=== PATIENT | female | born 1970 | race Caucasian/White ===

== ENCOUNTER 2018-01-17 10:28 | Inpatient (IN) | payer SELFPAY ==
[2018-01-17] MEDS ORDERED: MORPHINE 4 MG/ML SYR ONE (12:23)
[2018-01-17] MEDS ORDERED: ONDANSETRON 4 MG/2 ML VIAL ONE ×2 (12:23→16:26)
[2018-01-17] MEDS ORDERED: NA CHLORIDE 0.9% 1,000 ML ONE ×2 (12:23→16:26)
[2018-01-17 13:06] LABS: Absolute Lymphocytes (CBC) 1.7 K/uL (0.7-4.9); Absolute Monocytes 0.9 K/uL (0.1-1.3); Absolute Neutrophil 9.2 K/uL (1.8-8.0); Basophils % 0.6 % (0-1.3); Eosinophils % 0.5 % (0-4.4); Hematocrit 50.6 % (36.0-45.0); Lymphocytes % 14.3 % (15.3-44.8); MCH 32.1 pg (27.0-35.0); MCV 96.8 fL (80-100); MPV 9.7 fL (7.6-11.3); Monocytes % 7.2 % (3.3-12.3); RBC Red Blood Cell Count 5.23 M/uL (3.86-4.86)
[2018-01-17] MEDS ORDERED: DICYCLOMINE HCL 10 MG CAP ONE (13:13)
[2018-01-17 13:25] LABS: Albumin 4.4 g/dL (3.4-5.0); Bilirubin Direct 0.1 mg/dL (0-0.2); Bilirubin Total 0.5 mg/dL (0.2-1.0); Potassium 3.7 mmol/L (3.5-5.1); Protein, Total 8.3 g/dL (6.4-8.2)
--- NOTE | 2018-01-17 13:48 | RAD REPORT ---
EXAM DESCRIPTION: CT - Abdomen Pelvis W Contrast - 01/17/2018 1:37 pm CLINICAL HISTORY: Abdominal pain with nausea. Vomiting and diarrhea COMPARISON: none. TECHNIQUE: Computed axial tomography of the abdomen pelvis was obtained. 100 cc Isovue-300 was admin istered intravenously. Oral contrast was not requested which limits evaluation of bowel. All CT scans are performed using dose optimization technique as appropriate and may include automated exposure control or mA/KV adjustment according to patient size. FINDINGS: The liver has a diminished attenuation consistent with fatty infiltration Gallbladder wall is borderline thickened. Spleen, pancreas, adrenal and kidneys appear unremarkable. There is no evidence of diverticulitis. Appendix is normal. An adnexal mass is not seen IMPRESSION: Borderline gallbladder wall thickening. Ultrasound is recommended
[2018-01-17 15:09] LABS: Urine Blood TRACE (NEG); Urine Glucose NEGATIVE (NEG); Urine Protein 2+ (NEG); Urine pH 6.5 (5.0-7.0)
--- NOTE | 2018-01-17 16:13 | RAD REPORT ---
EXAM DESCRIPTION: US - Abdomen Exam Limited - 01/17/2018 3:12 pm CLINICAL HISTORY: Abdominal pain. COMPARISON: 01/17/2018 cat scan FINDINGS: Gallbladder wall is thickened. Stones and sludge occupy the gallbladder. Common bile duct is dilated measuring 12 millimeters. . IMPRESSION: Cholelithiasis. Thickened gallbladder wall likely indicating cholecystitis Dilatation of the common bile duct probably secondary to a nonvisualized stone.
[2018-01-17] MEDS ORDERED: HYDROMORPHONE HCL 0.5 MG/0.5 ML INJ ONE (16:26)
--- NOTE | 2018-01-17 16:50 | ER ---
Nurse's Notes [facility] Name: Maggie Mancuso Age: 47 yrs Sex: Female : 1970 Arrival Date: 01/17/2018 Time: 10:32 Bed 18 Private MD: Diagnosis: Cholecystitis, unspecified;Cholelithiasis Presentation: 01/17 10:45 Presenting complaint: Patient states: upper abd pain with nausea/vomiting/diarrhea x 5 aa5 days ago. Transition of care: patient was not received from another setting of care. Onset of symptoms was January 2018. Risk Assessment: Do you want to hurt yourself or someone else? Patient reports no desire to harm self or others. Initial Sepsis Screen: Does the patient meet any 2 criteria? No. Patient's initial sepsis screen is negative. Does the patient have a suspected source of infection? No. Patient's initial sepsis screen is negative. Care prior to arrival: None. 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 - Social history:: Smoking status: Patient uses tobacco products, smokes one pack cigarettes per day. - Ebola Screening: : No symptoms or risks identified at this time. Screenin:47 Abuse screen: Denies threats or abuse. Nutritional screening: Has had N/V for 3 or more em days. Tuberculosis screening: No symptoms or risk factors identified. Fall Risk None identified. Assessment: 12:00 General: Appears in no apparent distress. uncomfortable, Behavior is calm, cooperative, em Denies fever. Pain: Complains of pain in epigastric area Pain currently is 8 out of 10 on a pain scale. Neuro: Level of Consciousness is awake, alert, obeys commands, Oriented to person, place, time, situation, Gait is steady, Speech is normal. Cardiovascular: Capillary refill < 3 seconds Patient's skin is warm and dry. Respiratory: Airway is patent Respiratory effort is even, unlabored, Respiratory pattern is regular, symmetrical. GI: Abdomen is round non-distended, Bowel sounds present X 4 quads. Abd is soft X 4 quads Abdomen is tender to palpation in right upper quadrant and left upper quadrant Reports diarrhea, nausea, vomiting. : Urine is clear. EENT: No signs and/or symptoms were reported regarding the EENT system. Derm: Skin is intact, Skin is pink, warm \T\ dry. Musculoskeletal: Range of motion: intact in all extremities. 12:15 Reassessment: I agree with previous assessment. hb 13:01 Reassessment: pt reports pain medication did not help, rates pain 9/10, provider em notified, new medication orders received. 14:00 Reassessment: Patient appears in no apparent distress at this time. Patient and/or em family updated on plan of care and expected duration. Pain level reassessed. Patient is alert, oriented x 3, equal unlabored respirations, skin warm/dry/pink. Patient states feeling better. Patient states symptoms have improved. 16:06 Reassessment: Patient appears in no apparent distress at this time. Patient and/or em family updated on plan of care and expected duration. Pain level reassessed. Patient is alert, oriented x 3, equal unlabored respirations, skin warm/dry/pink. provider at bedside. 17:35 Reassessment: Patient appears in no apparent distress at this time. Patient and/or em family updated on plan of care and expected duration. Pain level reassessed. Patient is alert, oriented x 3, equal unlabored respirations, skin warm/dry/pink. rates pain 4/10 Patient states feeling better. Patient states symptoms have improved. 17:37 Reassessment: admitting provider at bedside. em 18:04 Reassessment: Patient appears in no apparent distress at this time. Patient and/or em family updated on plan of care and expected duration. Pain level reassessed. Patient is alert, oriented x 3, equal unlabored respirations, skin warm/dry/pink. 19:26 Reassessment: Patient appears in no apparent distress at this time. No changes from jd3 previously documented assessment. Patient and/or family updated on plan of care and expected duration. Pain level reassessed. Patient is alert, oriented x 3, equal unlabored respirations, skin warm/dry/pink. Vital Signs: 10:47 BP 165 / 109; Pulse 91; Resp 16 S; Temp 98.5(TE); Pulse Ox 97% on R/A; Weight 72.57 kg aa5 (R); Height 5 ft. 1 in. (154.94 cm) (R); Pain 8/10; 12:51 BP 166 / 99; Pulse 89; Resp 18; Pulse Ox 94% on R/A; Pain 8/10; em 14:00 BP 172 / 94; Pulse 82; Resp 18; Pulse Ox 96% on R/A; Pain 4/10; em 15:00 BP 175 / 90; Pulse 86; Resp 18; Pulse Ox 97% on R/A; em 16:00 BP 164 / 98; Pulse 83; Resp 18; Pulse Ox 95% on R/A; Pain 6/10; em 17:00 BP 145 / 80; Pulse 76; Resp 15; Pulse Ox 93% on R/A; em 18:00 BP 174 / 90; Pulse 76; Resp 18; Pulse Ox 94% on R/A; Pain 4/10; em 19:26 BP 166 / 75; Pulse 73; Resp 18 S; Pulse Ox 95% on R/A; jd3 10:47 Body Mass Index 30.23 (72.57 kg, 154.94 cm) aa5 ED Course: 10:32 Patient arrived in ED. as 10:46 Triage completed. aa5 10:46 Arm band placed on. aa5 11:36 Shiraz Davis PA is PHCP. [facility] 11:36 Nick Steele MD is Attending Physician. [facility] 11:36 Yousif Palm LVN is Primary Nurse. em 12:47 Patient has correct armband on for positive identification. Placed in gown. Bed in low em position. Call light in reach. Side rails up X2. Adult w/ patient. 12:47 No provider procedures requiring assistance completed. Initial lab(s) drawn, by me, em sent to lab. Inserted saline lock: 20 gauge in right antecubital area, using aseptic technique. Blood collected. 13:36 CT completed. Patient tolerated procedure well. Patient moved back from CT. jg6 13:37 CT Abd/Pelvis - W/Contrast In Process Unspecified. EDMS 15:06 Ultrasound completed. Patient tolerated well. Notified FORMULATOR/PA MICKAIL. sg3 15:12 US Abdomen Limited In Process Unspecified. EDMS 16:29 initiated a transfer with Louisa from the [facility] transfer center. eb 16:49 Mirela Batista MD is Hospitalizing Provider. jmm 19:36 Patient admitted, IV remains in place. jd3 Administered Medications: 12:37 Drug: NS 0.9% 1000 ml Route: IV; Rate: 1 bolus; Site: right antecubital; la1 14:00 Follow up: IV Status: Completed infusion; IV Intake: 1000ml em 12:37 Drug: Zofran 4 mg Route: IVP; Site: right antecubital; la1 16:05 Follow up: Response: No adverse reaction em 12:37 Drug: morphine 4 mg Route: IVP; Site: right antecubital; la1 16:05 Follow up: Response: No adverse reaction; Pain is unchanged, physician notified em 13:11 CANCELLED (PO form): Bentyl 20 mg IM once jmm 13:12 Drug: Bentyl 20 mg Route: PO; em 14:30 Follow up: Response: No adverse reaction; Pain is decreased em 16:28 Drug: Zofran 4 mg Route: IVP; Site: right antecubital; em 17:17 Follow up: Response: No adverse reaction em 16:28 Drug: NS 0.9% 1000 ml Route: IV; Rate: 1 bolus; Site: right antecubital; em 17:42 Follow up: IV Status: Completed infusion; IV Intake: 1000ml em 16:30 Drug: Dilaudid 0.5 mg Route: IVP; Site: right antecubital; hb 17:17 Follow up: Response: No adverse reaction; Pain is decreased em 17:18 Drug: Cipro 400 mg Volume: 200 ml; Route: IVPB; Infused Over: 60 mins; Site: right em antecubital; 19:05 Follow up: Response: No adverse reaction; IV Status: Completed infusion; IV Intake: em 200ml 17:18 Drug: Flagyl 500 mg Volume: 100 ml; Route: IVPB; Rate: 200 ml/hr; Infused Over: 30 em mins; Site: right antecubital; 19:05 Follow up: Response: No adverse reaction; IV Status: Completed infusion; IV Intake: em 100ml Intake: 14:00 IV: 1000ml; Total: 1000ml. em 17:42 IV: 1000ml; Total: 2000ml. em 19:05 IV: 200ml; Total: 2200ml. em 19:05 IV: 100ml; Total: 2300ml. em Outcome: 16:50 Decision to Hospitalize by Provider. batool 19:35 Admitted to Med/surg accompanied by tech, via wheelchair, room 232, with chart, Report brandy called to Nadia BLAIR 19:35 Condition: stable 19:35 Instructed on the need for admit, Demonstrated understanding of instructions. 19:44 Patient left the ED. brandy Signatures: Dispatcher [employer] EDMS Shiraz Davis PA PA jmm Munoz, Edgar, PARK RECREATION MANAGER PARK RECREATION MANAGER Ekaterina Gurrola Audri, RN RN aa5 Hossein Garcia RN RN la1 Jduy Good RN RN Tone Duron RN RN [email or web address] Dariana Allen3 Sally Schwartz Jessica j6
--- NOTE | 2018-01-17 16:51 | EDPHYS ---
Physician Documentation [facility] Name: Maggie Mancuso Age: 47 yrs Sex: Female : 1970 Arrival Date: 01/17/2018 Time: 10:32 Bed 18 Private MD: ED Physician Nick Steele HPI: 01/17 12:13 This 47 yrs old Female presents to ER via Ambulatory with complaints of m Abdominal Pain - x5 days, Vomiting. 12:13 The patient presents with abdominal pain. Onset: The symptoms/episode began/occurred jmm gradually, 5 day(s) ago. The symptoms radiate to Associated signs and symptoms: Pertinent positives: diarrhea, nausea, vomiting. The symptoms are described as achy. This is a 47 year old female with a history of HTN, HLP, Bipolar that presents to the ED with epigastric abdominal pain, vomiting, diarrhea for the past days. Denies recent abx use, denies infectious exposure, denies recent travel. . 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 - Social history:: Smoking status: Patient uses tobacco products, smokes one pack cigarettes per day. - Ebola Screening: : No symptoms or risks identified at this time. ROS: 12:13 Constitutional: Negative for fever, chills, and weight loss, Cardiovascular: Negative jmm for chest pain, palpitations, and edema, Respiratory: Negative for shortness of breath, cough, wheezing, and pleuritic chest pain. 12:13 Abdomen/GI: Positive for abdominal pain, nausea and vomiting, diarrhea. 12:13 Back: Positive for radiated pain. 12:13 All other systems are negative. Exam: 12:13 Head/Face: atraumatic. Chest/axilla: Normal chest wall appearance and motion. jmm Cardiovascular: Regular rate and rhythm. No edema appreciated Respiratory: Normal respirations, no respiratory distress appreciated 12:13 Constitutional: The patient appears in no acute distress, alert, awake. 12:13 Abdomen/GI: Inspection: abdomen appears normal, Bowel sounds: normal, Palpation: soft, mild abdominal tenderness, in the epigastric area. 12:13 Back: ROM is normal. 12:13 Musculoskeletal/extremity: ROM: intact in all extremities. 12:13 Skin: Appearance: Color: normal in color. 12:13 Neuro: Orientation: is normal, Mentation: is normal, Memory: is normal. 12:13 Psych: Behavior/mood is pleasant, cooperative. Vital Signs: 10:47 BP 165 / 109; Pulse 91; Resp 16 S; Temp 98.5(TE); Pulse Ox 97% on R/A; Weight 72.57 kg aa5 (R); Height 5 ft. 1 in. (154.94 cm) (R); Pain 8/10; 12:51 BP 166 / 99; Pulse 89; Resp 18; Pulse Ox 94% on R/A; Pain 8/10; em 14:00 BP 172 / 94; Pulse 82; Resp 18; Pulse Ox 96% on R/A; Pain 4/10; em 15:00 BP 175 / 90; Pulse 86; Resp 18; Pulse Ox 97% on R/A; em 16:00 BP 164 / 98; Pulse 83; Resp 18; Pulse Ox 95% on R/A; Pain 6/10; em 17:00 BP 145 / 80; Pulse 76; Resp 15; Pulse Ox 93% on R/A; em 18:00 BP 174 / 90; Pulse 76; Resp 18; Pulse Ox 94% on R/A; Pain 4/10; em 19:26 BP 166 / 75; Pulse 73; Resp 18 S; Pulse Ox 95% on R/A; jd3 10:47 Body Mass Index 30.23 (72.57 kg, 154.94 cm) aa5 MDM: 12:10 Patient medically screened. batool 16:45 Data reviewed: vital signs, nurses notes. Counseling: I had a detailed discussion with batool the patient and/or guardian regarding: the historical points, exam findings, and any diagnostic results supporting the discharge/admit diagnosis, the presence of at least one elevated blood pressure reading (>120/80) during this emergency department visit, radiology results, the need for further work-up and treatment in the hospital. ED course: I discussed the patient with Dr. Gonzalez whom recommended MRCP tomorrow with GI consult on Friday. I discussed this with the patient whom agreed with the plan of care. Patient is currently comfortable and non toxic in appearance. Lipase is WNL. I discussed the patient with Dr. Batista with Dr. Gonzalez plan of care whom accepted admission. . 01/17 12:10 Order name: Basic Metabolic Panel; Complete Time: 13:50 jmm 01/17 12:10 Order name: CBC with Diff; Complete Time: 13:50 m 01/17 12:10 Order name: Creatinine for Radiology; Complete Time: 13:50 jmm 01/17 12:10 Order name: Hepatic Function; Complete Time: 13:50 jmm 01/17 12:10 Order name: Lipase; Complete Time: 13:50 jmm 01/17 12:46 Order name: Urine Dipstick--Ancillary (enter results); Complete Time: 15:14 eb 01/17 12:46 Order name: Urine --Ancillary (enter results); Complete Time: 15:14 eb 01/17 13:11 Order name: CT Abd/Pelvis - W/Contrast; Complete Time: 13:50 jmm 01/17 13:50 Order name: US Abdomen Limited; Complete Time: 16:14 jmm 01/17 12:10 Order name: IV Saline Lock; Complete Time: 12:53 jmm 01/17 12:10 Order name: Labs collected and sent; Complete Time: 12:53 jmm 01/17 12:10 Order name: Urine Dipstick-Ancillary (obtain specimen); Complete Time: 12:53 [facility] 01/17 12:10 Order name: Urine Test (obtain specimen); Complete Time: 12:52 jmm Administered Medications: 12:37 Drug: NS 0.9% 1000 ml Route: IV; Rate: 1 bolus; Site: right antecubital; la1 14:00 Follow up: IV Status: Completed infusion; IV Intake: 1000ml em 12:37 Drug: Zofran 4 mg Route: IVP; Site: right antecubital; la1 16:05 Follow up: Response: No adverse reaction em 12:37 Drug: morphine 4 mg Route: IVP; Site: right antecubital; la1 16:05 Follow up: Response: No adverse reaction; Pain is unchanged, physician notified em 13:11 CANCELLED (PO form): Bentyl 20 mg IM once [facility] 13:12 Drug: Bentyl 20 mg Route: PO; em 14:30 Follow up: Response: No adverse reaction; Pain is decreased em 16:28 Drug: Zofran 4 mg Route: IVP; Site: right antecubital; em 17:17 Follow up: Response: No adverse reaction em 16:28 Drug: NS 0.9% 1000 ml Route: IV; Rate: 1 bolus; Site: right antecubital; em 17:42 Follow up: IV Status: Completed infusion; IV Intake: 1000ml em 16:30 Drug: Dilaudid 0.5 mg Route: IVP; Site: right antecubital; hb 17:17 Follow up: Response: No adverse reaction; Pain is decreased em 17:18 Drug: Cipro 400 mg Volume: 200 ml; Route: IVPB; Infused Over: 60 mins; Site: right em antecubital; 19:05 Follow up: Response: No adverse reaction; IV Status: Completed infusion; IV Intake: em 200ml 17:18 Drug: Flagyl 500 mg Volume: 100 ml; Route: IVPB; Rate: 200 ml/hr; Infused Over: 30 em mins; Site: right antecubital; 19:05 Follow up: Response: No adverse reaction; IV Status: Completed infusion; IV Intake: em 100ml Disposition: 01/17/18 16:50 Hospitalization ordered by Mirela Batista for Inpatient Admission. Preliminary diagnosis are Cholecystitis, unspecified, Cholelithiasis. - Bed requested for Telemetry/MedSurg (Inpatient). - Status is Inpatient Admission. jd3 - Condition is Stable. - Problem is new. - Symptoms have improved. UTI on Admission? No Addendum: 01/20/2018 20:40 Co-signature as Attending Physician, Nick Steele MD. r n Signatures: Dispatcher [employer] EDShiraz Sarabia PA PA Yousif Milian, TILE CONDUIT LAYER TILE CONDUIT LAYER em Nick Steele MD MD rn Calderon, Audri, RN RN aa5 Hossein Garcia RN RN la1 Judy Good RN RN Tone Duron RN RN jd3 Sally Schwartz Corrections: (The following items were deleted from the chart) 01/17 13:11 13:04 Bentyl 20 mg IM once ordered. [facility] 18:18 16:50 Hospitalization Ordered by Mirela Batista MD for Inpatient Admission. eb Preliminary diagnosis is Cholecystitis, unspecified; Cholelithiasis. Bed requested for Telemetry/MedSurg (Inpatient). Status is Inpatient Admission. Condition is Stable. Problem is new. Symptoms have improved. UTI on Admission? No. [facility] 19:44 18:18 01/17/2018 16:50 Hospitalization Ordered by Mirela Batista MD for Inpatient jd3 Admission. Preliminary diagnosis is Cholecystitis, unspecified; Cholelithiasis. Bed requested for Telemetry/MedSurg (Inpatient). Status is Inpatient Admission. Condition is Stable. Problem is new. Symptoms have improved. UTI on Admission? No. eb
[2018-01-17] MEDS ORDERED: Ciprofloxacin 200mg IV 200 MG/100 ML IV.SOLN. IV ONE (17:17)
[2018-01-17] MEDS ORDERED: METRONIDAZOLE 500mg IVPB 500 MG/100 ML BAG IV ONE (17:17)
[2018-01-17] MEDS: D5 0.45 NS 1,000 ML IV SCH (20:10)
[2018-01-17] MEDS: MORPHINE 4 MG/ML SYR IV PRN (22:05)
[2018-01-17] MEDS: ONDANSETRON 4 MG/2 ML VIAL IV PRN (22:11)
[2018-01-17 22:31] LABS: Urine Appearance CLEAR; Urine Bilirubin NEGATIVE (NEG); Urine Blood NEGATIVE (NEG); Urine Color YELLOW; Urine Glucose NEGATIVE (NEG); Urine Protein NEGATIVE (NEG); Urine Specific Gravity >=1.030 (1.005-1.030)
[2018-01-17 22:39] LABS: Urine Microscopic Reflex NO UMIC
--- NOTE | 2018-01-18 00:06 | CON ---
Reason For Consultation: Acute cholecystitis, symptomatic cholelithiasis, possible choledocholithias is, dilated common bile duct, increased liver function tests. History Of Present Illness: This is the case of a female who comes to us with abdominal pain, epigas tric right upper quadrant started about 3 days ago associated with nausea, vomiting, and diarrhea. T he patient was trying to control her diet but did not improve, so she decided to come now to the ER. She denies any dysuria, hematuria, hematochezia, or melena. Denies any recent traveling out of the country. Denies any family member sick at home. Allergies: NONE. Medical History: Includes bipolar, hypertension, hyperlipidemia. Medications: She does not remember the name, although she takes blood pressure medication. Social History: She smokes a pack a day. She does not drink alcohol. Review of Systems: Ten points otherwise unremarkable. Physical Examination: General: The patient is awake and alert. HEENT: Pupils are equal and reactive, anicteric. Neck: Supple. Chest: Clear. Heart: S1, S2. Abdomen: Epigastric right upper quadrant tenderness with Cabrera sign positive. The rest of abdomen is soft and depressible. Breasts: Deferred. Rectal: Deferred. Pelvic: Deferred. Extremities: Good capillary refill. Laboratory Data: Blood work shows WBC count of 11.9 with potassium 3.7 and AST elevated at 54. UA s hows nitrite negative. CAT scan of abdomen and pelvis interpreted by Dr. Andrea as borderline gallb ladder thickening. Ultrasound recommended. Ultrasound of the abdomen interpreted by Dr. Andrea as cholelithiasis with thickened gallbladder indicating acute cholecystitis, dilatation of the common bi le duct probably secondary to nonvisualized stone. Assessment: This is a 47-year-old patient with symptomatic cholelithiasis, acute cholecystitis, dila tanja common bile duct, increased liver function tests, and possible choledocholithiasis. The patient will be admitted, n.p.o., IV fluids, and she is going to be scheduled for MRCP and a GI consult for p ossible ERCP. After that, if clinically she is stable, she also was explained the options of laparos copic, possible open cholecystectomy. Benefits, alternatives, and risks including, but not limited t o infection, bleeding, damage to adjacent structures, anesthesia complication, choledocholithiasis, b ile leak, pancreatitis, PR, and even . She also understands this may not relieve her symptoms, she might need more than one surgical intervention. ANGÉLICA/DENNY Voice ID: [id number] Report ID: [id number]
[2018-01-18] MEDS: METRONIDAZOLE 500mg IVPB 500 MG/100 ML BAG IV SCH ×5 (00:54→23:13)
[2018-01-18] MEDS: HYDRALAZINE HCL 20 MG/ML VIAL IV PRN ×2 (01:00→12:02)
[2018-01-18 01:17] VITALS: BMI 28.7
--- NOTE | 2018-01-18 03:58 | HP ---
Date of Admission: 01/17/2018 Reason For Admission: Abdominal pain. History Of Present Illness: This is a 47-year-old female with history of multiple medical problems i ncluding hypertension, hyperlipidemia, tobacco abuse, bipolar disorder, presented with history of 5 d ays of progressive epigastric abdominal pain that started without fever. She reported nausea, vomiti ng, diarrhea, did not get much worse, but she reported the pain getting worse recently. She states s he thought she had gastroenteritis and she did not seek medical attention, but because the pain was s o severe, today it was 10/10, she decided to come to the emergency room where she was evaluated. A C T of the abdomen and pelvis done in the emergency room showed borderline gallbladder wall thickening. Ultrasound followed and that showed cholelithiasis with thickened gallbladder indicating cholecysti tis. General Surgery consulted and Dr. Gonzalez advised the patient proceed with ERCP. Her labs vangie wed leukocytosis with slight elevation in AST. Currently, she is lying in bed. She looks comfortabl e. Her is at the bedside. Review of systems otherwise as below. Past Medical History: Significant for hypertension, hyperlipidemia, overweight, bipolar disorder, da elvira alcohol intake. Past Surgical History: Significant for tubal ligation. Allergies: NONE. Social History: She is . She has 1 kid. 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 She does smoke 1 pack a day fo r the last 30 years. She does drink every day whiskey. She does not smoke marijuana. Family History: Father of [place], and mother of unknown etiology. Medication List: Not available. Review of Systems: Denies any fever, chills, night sweats, dizziness, lightheaded, headache, blurred vision. She has no cough, shortness of breath, chest pain, palpitations, PND, orthopnea, dyspnea on exertion, lower ext remity edema. She has nausea and vomiting, and she has abdominal pain as I mentioned above. The ruth ann n is continuous, 10/10, and mostly in the epigastric area. There are no aggravating or alleviating f actors. She had diarrhea, last bowel movement this morning. She has no history of dysuria, frequenc y, or urgency. She has history of depression, anxiety, and bipolar disorder. Physical Examination: Vital Signs: Blood pressure 165/109, respiratory rate 16, pulse 91, temperature 98.5, saturating 97% . General: She is alert and oriented x3. Does not look in any distress. HEENT: Atraumatic, normocephalic. PERRLA. Oral mucosa is moist. Neck: Supple. No JVD. No carotid bruits. Chest: Clear to auscultation. Good air entry. Heart: Regular rate and rhythm. S1, S2 normal. No gallop or murmur. Abdomen: Soft. Minimal tenderness in the epigastric area. There is no rebound. Positive bowel leidy nds. Extremities: No clubbing, cyanosis, or edema. No calf tenderness. Neurologic: Grossly intact. Cranial nerves exam 2 through 12 intact. Normal sensation. Normal ref lexes. Normal muscle strength. Laboratory Data: Labs done in the emergency room showed leukocytosis, white blood cells at 11.5, hem oglobin at 16.8. Chemistry within normal limits, except for AST of 54, protein of 8.3. Urine and bl ood culture still pending. CT as I mentioned above. Assessment And Plan: This is a 47-year-old female with history of hypertension, hyperlipidemia, bipo lar disorder, presented with 5 days of abdominal pain, found to have acute cholecystitis. 1.Acute cholecystitis. We will keep the patient n.p.o. except for ice chips. Continue IV fluids. Symptomatic treatment for pain and nausea. We will start her empirically on Flagyl and Levaquin. Day rgical consult pending. MRCP in the morning and GI consult on Friday. 2.Symptomatic treatment for pain with morphine. 3.Symptomatic treatment for nausea, vomiting with Zofran. 4.Hypertension. We will start hydralazine p.r.n. until she provides her medication list so we can r esume her home medications. 5.Hyperlipidemia. We will resume medication upon consultation with the pharmacy. 6.History of bipolar disorder. We will resume home medication when available. 7.Deep vein thrombosis prophylaxis. I will not start this just in case the patient is going to have surgery. The patient is young and she is ambulatory. NE Voice ID: [id number]
[2018-01-18 04:38] LABS: Absolute Lymphocytes (CBC) 1.6 K/uL (0.7-4.9); Absolute Monocytes 0.7 K/uL (0.1-1.3); Basophils % 0.5 % (0-1.3); Eosinophils % 1.8 % (0-4.4); Hematocrit 44.7 % (36.0-45.0); Lymphocytes % 18.8 % (15.3-44.8); MCH 32.6 pg (27.0-35.0); MCV 95.4 fL (80-100); MPV 9.9 fL (7.6-11.3); Monocytes % 8.8 % (3.3-12.3); RBC Red Blood Cell Count 4.69 M/uL (3.86-4.86)
[2018-01-18 04:55] LABS: ALT/SGPT 37 U/L (12-78); AST/SGOT 29 U/L (15-37); Albumin 3.3 g/dL (3.4-5.0); Alkaline Phosphatase 72 U/L (45-117); BUN Blood Urea Nitrogen 5 mg/dL (7-18); Bicarbonate 28 mmol/L (21-32); Bilirubin Direct 0.2 mg/dL (0-0.2); Bilirubin Total 0.7 mg/dL (0.2-1.0); Glucose Level 104 mg/dL (74-106); Potassium 3.4 mmol/L (3.5-5.1); Protein, Total 6.5 g/dL (6.4-8.2); Sodium Level 139 mmol/L (136-145)
[2018-01-18] MEDS: D5 0.45 NS 1,000 ML IV SCH ×3 (05:04→20:19)
[2018-01-18] MEDS: ONDANSETRON 4 MG/2 ML VIAL IV PRN (05:38)
[2018-01-18] MEDS: MORPHINE 4 MG/ML SYR IV PRN ×3 (05:38→19:23)
[2018-01-18] MEDS ORDERED: NICOTINE 21 MG/PAT TD SCH ×2 (09:00→21:00)
[2018-01-18] MEDS: Levofloxacin500mg IV 500 MG/100 ML BAG IV SCH (09:15)
[2018-01-18 11:54] VITALS: O2SAT 94
[2018-01-18] MEDS: lamoTRIgine 100 MG TAB PO SCH ×2 (12:53→20:12)
[2018-01-18] MEDS: QUETIAPINE 25 MG TAB PO SCH ×2 (12:53→20:12)
[2018-01-18] MEDS: FLUOXETINE 10 MG CAP PO SCH (12:54)
[2018-01-18] MEDS: LISINOPRIL 20 MG TAB PO SCH (12:54)
[2018-01-18] MEDS ORDERED: POTASSIUM 25 MEQ EFFERV TAB PO ONE (13:00)
--- NOTE | 2018-01-18 16:09 | PN ---
Subjective: Currently, the patient is lying in bed. She looks comfortable. Her abdominal pain subs ided overnight. She has been on ice chips only, otherwise n.p.o. No fever and no chills overnight. She met with Dr. Gonzalez last night as well. She is waiting for her MRCP. She brought a list of h er medication to resume. She has some mild nausea, but no vomiting. No diarrhea. Review of Systems: Otherwise negative. Objective: Current vital signs: Blood pressure is 177/96, respiratory rate 20, pulse 82, temperatur e 97.8. General: The patient is alert and oriented x3, does not look in any distress. HEENT: Atraumatic, normocephalic. PERRLA. Oral mucosa is moist. Neck: Supple. No JVD. Chest: Clear to auscultation. Good air entry. Heart: Regular rate and rhythm. S1 and S2 normal. No gallop. Abdomen: Minimal tenderness in the epigastric area. There is no rebound. No guarding. Positive kristel wel sounds. Extremities: No clubbing, cyanosis, or edema. No calf tenderness. Neurologic: Grossly intact. Laboratory Data: Today, labs showed CBC within normal except for hemoglobin 15.3, slightly elevated. Chemistry within normal except for potassium 3.4, calcium 8.2, albumin 3.3. Assessment And Plan: This is a 47-year-old female with history of hypertension, hyperlipidemia, bipo lar disorder, presented with abdominal pain, found to have acute cholecystitis. 1.Acute cholecystitis. The patient is doing overall better. The pain subsided. Continue empiric c overage with broad-spectrum antibiotic with Levaquin and Flagyl. Pending magnetic resonance cholangi opancreatography, which will be done hopefully tomorrow and GI consult for possible endoscopic retrog rade cholangiopancreatography if needed. I appreciate Dr. Gonzalez's input. The patient may need ch olecystectomy based on magnetic resonance cholangiopancreatography and GI on board, so we will contin ue conservative management at this point. I will advance patient's diet just for clear liquid. 2.Hypertension, not well controlled. We will resume the patient's home medication with lisinopril 4 0 daily and p.r.n. hydralazine. 3.Symptomatic treatment for pain with morphine. 4.Bipolar disorder. We will resume her Seroquel. 5.History of hyperlipidemia. At this time, statin is on hold. The patient is not eating. 6.No deep venous thrombosis prophylaxis as the patient may need surgery soon. Advised the patient t o ambulate. 7.Discharge plan will depend on the patient's symptoms and need for endoscopic retrograde cholangiop ancreatography versus surgery. 8.Hypokalemia. We will replace. We will start the patient on potassium protocol. JOSEFINA/DENNY Voice ID: [id number] Report ID: [id number]
[2018-01-18] MEDS ORDERED: Levofloxacin500mg IV 500 MG/100 ML BAG IV SCH (17:00)
[2018-01-18] MEDS ORDERED: QUETIAPINE 100MG TAB PO SCH (21:00)
[2018-01-19] MEDS: METRONIDAZOLE 500mg IVPB 500 MG/100 ML BAG IV SCH ×3 (05:12→18:00)
[2018-01-19] MEDS: MORPHINE 4 MG/ML SYR IV PRN ×4 (05:40→19:08)
[2018-01-19] MEDS: D5 0.45 NS 1,000 ML IV SCH ×2 (05:44→10:00)
[2018-01-19 06:18] LABS: Potassium 3.5 mmol/L (3.5-5.1)
[2018-01-19] MEDS ORDERED: KCL 20 MEQ/100 mL IVPB 20 MEQ/100 ML BAG IV SCH (08:00)
[2018-01-19] MEDS ORDERED: FLUOXETINE HCL 10 MG PO SCH (09:00)
[2018-01-19] MEDS ORDERED: HOME MED 1 EA UNK (Lisinopril [Lisinopril] 40 MG) PO SCH (09:00)
[2018-01-19] MEDS: Levofloxacin500mg IV 500 MG/100 ML BAG IV SCH (10:11)
[2018-01-19] MEDS: LISINOPRIL 20 MG TAB PO SCH (10:12)
[2018-01-19] MEDS: lamoTRIgine 100 MG TAB PO SCH (10:13)
[2018-01-19] MEDS: QUETIAPINE 25 MG TAB PO SCH (10:13)
--- NOTE | 2018-01-19 10:18 | RAD REPORT ---
EXAM DESCRIPTION: MRI - Cholangiogram - 01/19/2018 10:05 am CLINICAL HISTORY: cholicytitis Right upper quadrant pain COMPARISON: Abdomen Pelvis W Contrast dated 01/17/2018; Abdomen Exam Limited dated 01/17/2018 FINDINGS: Three-dimensional MRCP was performed using maximum intensity projection reconstruction on the same work station. Mild intrahepatic biliary tree dilatation is seen. The common bile duct is mildly dilated with an abr upt caliber change distally and a small meniscus sign suggesting that a small common bile duct stone is present. The pancreatic duct is not pathologically dilated. Gallbladder contains multiple stones with mild wall thickening and trace pericholecystic fluid. Limited T2 sequences through the abdomen demonstrates no bulky adenopathy, significant free fluid or abscess. IMPRESSION: Common bile duct dilatation is noted with a small filling defect in the distal common bi le duct is suspicious for a stone. Followup ERCP may be considered for further assessment. Cholelithiasis with mild gallbladder wall thickening and trace pericholecystic fluid suggesting acute cholecystitis.
[2018-01-19] MEDS: FLUOXETINE 10 MG CAP PO SCH (12:48)
[2018-01-19 17:17] VITALS: BP 125/71; TEMP 99.3
--- NOTE | 2018-01-20 12:48 | DS ---
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 Gonzalez, General Surgery. Admitting Diagnoses: 1.Acute cholecystitis. 2.Essential hypertension. 3.Hyperlipidemia. 4.History of bipolar disorder. Discharge Diagnoses: 1.Acute cholecystitis, on IV antibiotics. 2.Elevated liver enzymes, improved. 3.Choledocholithiasis, the patient needs endoscopic retrograde cholangiopancreatography. 4.Bipolar disorder, stable. 5.Essential hypertension, stable. 6.Hyperlipidemia, statin on hold due to elevated lever function test. Hospital Course: The patient is a 47-year-old female, comes in with abdominal pain, found to have ac stebbins cholecystitis. The patient was started on IV antibiotics. Dr. Gonzalez, general surgeon was con sulted for possible cholecystectomy. MRCP was recommended, it was done and showed a stone in the com mon bile duct. Therefore, the patient will need ERCP. However, GI contractor general engineering, Dr. Mora does not pe rformed ERCPs. Dr. Ruiz was contacted, he is not on-call and unfortunately [facility] [place]. Therefore, the patient was transferred to [facility] for ERCP and man agement of the choledocholithiasis. The patient otherwise was stable. Her white count had normalize d. She was afebrile. Her electrolytes were corrected. Cultures were negative. She is not septic a ppearing. The patient was transferred in a stable condition. Activity: As tolerated. Diet: [place] diet. Physical Examination: General: Awake, alert, oriented, no acute distress. CV: S1, S2. No murmurs. Respiratory: Moving air well bilaterally. Abdomen: Soft. Mild tenderness to palpation in the epigastric region. No rebound or guarding. Pos itive bowel sounds. Extremities: No clubbing, cyanosis, edema. Neurologic: Nonfocal. Total time spent transferring the patient was 43 minutes. /DENNY Voice ID: [id number] Report ID: [id number]
== END 2018-01-19 19:12 | disposition short-term general hospital (02) | DRG 446 ==
LOC: ER 10:28 → ERHOLD 16:55 → 2ND 19:29
PROVIDERS: ADMIT Internal Medicine; ATTEND Family Medicine
DX: K80.42 Calculus of bile duct with acute cholecystitis without obstruction (principal); I10 Essential (primary) hypertension; E78.5 Hyperlipidemia, unspecified; F17.210 Nicotine dependence, cigarettes, uncomplicated; F31.9 Bipolar disorder, unspecified; E87.6 Hypokalemia
CPT/HCPCS: 36415; 74177; 74181; 76705; 80048; 80076; 81003; 81025; 83690; 85025; 87040; 96361; 96365; 96366; 96368; 96375; 99285; J0360; J0744; J1170; J2405; J7030